=== PATIENT | male | born 1995 | race Caucasian/White ===

== ENCOUNTER 2022-03-27 11:30 | Emergency (ER) | payer OTHER ==
[~2022-03-27] VITALS: Ht 172.7 cm; Wt 70.3 kg
[2022-03-27 11:30] VITALS: BP_SYST 129
--- NOTE | 2022-03-27 11:40 | NUR ---
Patient triaged and placed in waiting room. VSS and patient appears in no acute distress at this time. Accompanied by FRIEND, awaiting available bed, and MD notified of need for MSE.
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
--- NOTE | 2022-03-27 11:50 | NUR ---
PT REFUSING TO HAVE CLAVICLE XR DONE, DR FINLEY AWARE
--- NOTE | 2022-03-27 12:10 | NUR ---
DR FINLEY SEEN AND EVALUATED PT IN TRIAGE ROOM
[2022-03-27] MEDS ORDERED: IBUP-1971 PO (12:16)
--- NOTE | 2022-03-27 12:45 | NUR ---
DR FINLEY OUT TO SPEAK WITH PT RE: TEST RESULTS
--- NOTE | 2022-03-27 13:00 | NUR ---
Patient given written and verbal discharge instructions and verbalizes understanding. ER MD discussed with patient the results and treatment provided. Patient in stable condition. ID arm band removed. Rx of IBUPROFEN given. Patient educated on pain management and to follow up with PMD. Pain Scale 0/10. Opportunity for questions provided and answered. Medication side effect fact sheet provided.
--- NOTE | 2022-03-27 13:30 | NUR ---
Note diegoone in EDM - 03/27/22 at 1336 by USMAN Patient given written and verbal discharge instructions and verbalizes understanding. ER discussed with patient the results and treatment provided. Patient in stable condition. ID arm band removed. Rx of IBUPROFEN given. Patient educated on pain management and to follow up with PMD. Pain Scale 0/10. Opportunity for questions provided and answered. Medication side effect fact sheet provided.
== END 2022-03-27 13:00 | disposition home or self-care (01) ==
LOC: SED 11:30
DX: S60.221A Contusion of right hand, initial encounter (principal); Z79.899 Other long term (current) drug therapy; V49.40XA Driver injured in collision with unspecified motor vehicles in traffic accident, initial encounter; Y93.89 Activity, other specified; Y92.89 Other specified places as the place of occurrence of the external cause; Y99.8 Other external cause status
CPT/HCPCS: 99283